=== PATIENT | female | born 1975 | race Asian ===

== ENCOUNTER 2016-11-17 11:52 | Emergency (ER) | payer MEDICAID ==
[~2016-11-17] VITALS: Ht 147.3 cm; Wt 64.5 kg
[~2016-11-17 11:52] MED LIST: ALPR-475 PO; LAMO150T PO; LAMO200T49 PO; METR500T PO; TRAZ150T68 PO; TRAZ50TA18 PO
[2016-11-17] MEDS ORDERED: ALPR-475 PO (12:47)
[2016-11-17] MEDS ORDERED: IBUPROFEN 200 MG TABLET ONE (12:59)
[2016-11-17] MEDS ORDERED: IBUPROFEN 200 MG TABLET PO ONE (13:00)
[2016-11-17 15:56] VITALS: BP 130/78
== END 2016-11-17 16:03 | disposition home or self-care (01) ==
LOC: ED 13:02
DX: S16.1XXA Strain of muscle, fascia and tendon at neck level, initial encounter (principal); M25.512 Pain in left shoulder; S80.12XA Contusion of left lower leg, initial encounter; Y04.8XXA Assault by other bodily force, initial encounter; Y93.89 Activity, other specified; Y99.8 Other external cause status; Y92.098 Other place in other non-institutional residence as the place of occurrence of the external cause
CPT/HCPCS: 72125

== ENCOUNTER 2017-04-01 04:52 | Emergency (ER) | payer SELFPAY ==
[~2017-04-01] VITALS: Ht 147.3 cm; Wt 61.7 kg
[2017-04-01 04:54] VITALS: BP 123/82
[2017-04-01] MEDS ORDERED: IBUPROFEN 200 MG TABLET ONE (05:25)
[2017-04-01] MEDS ORDERED: IBUPROFEN 200 MG TABLET PO ONE (05:30)
[2017-04-01] MEDS ORDERED: LIDOCAINE 1%, 20ML ONE (05:54)
[2017-04-01] MEDS ORDERED: LIDOCAINE 1%, 20ML SQ ONE (06:00)
== END 2017-04-01 07:16 | disposition home or self-care (01) ==
LOC: ED 05:17
DX: S63.297A Dislocation of distal interphalangeal joint of left little finger, initial encounter (principal); S70.312A Abrasion, left thigh, initial encounter; F17.210 Nicotine dependence, cigarettes, uncomplicated; W13.9XXA Fall from, out of or through building, not otherwise specified, initial encounter; Y93.89 Activity, other specified; Y92.89 Other specified places as the place of occurrence of the external cause; Y99.8 Other external cause status
CPT/HCPCS: 26670

== ENCOUNTER 2017-09-02 06:09 | Emergency (ER) | payer OTHER ==
[~2017-09-02] VITALS: Ht 149.9 cm; Wt 65.0 kg
[~2017-09-02 06:09] MED LIST changes: -LAMO150T PO; +LAMO150T2 PO; +TRAZ150T62 PO; -TRAZ150T68 PO
[2017-09-02] MEDS ORDERED: EPINEPHRINE 1 MG/ML, 1ML SQ ONE (08:00)
[2017-09-02] MEDS ORDERED: EPINEPHRINE 1 MG/ML, 1ML ONE (08:15)
[2017-09-02 08:19] LABS: BASOPHILS # (AUTO) 0.14 x10^3/uL (0-0.1); BASOPHILS % (AUTO) 3 % (0-1); EOSINOPHILS # (AUTO) 0.28 x10^3/uL (0-0.4); EOSINOPHILS % (AUTO) 5 % (1-7); LYMPHOCYTES # (AUTO) 2.31 x10^3/uL (1-3.4); LYMPHOCYTES % (AUTO) 42 % (22-44); MD NO; MEAN CORPUSCULAR HEMOGLOBIN 31.3 pg (27.0-34.8); MEAN CORPUSCULAR HGB CONC 34.3 g/dL (32.4-35.8); MEAN CORPUSCULAR VOLUME 91.1 fL (80-100); MEAN PLATELET VOLUME 8.7 fL (7.4-10.4); MONOCYTES # (AUTO) 0.76 x10^3/uL (0.2-0.8); MONOCYTES % (AUTO) 14 % (2-9); NEUTROPHILS # (AUTO) 2.06 x10^3/uL (1.8-6.8); NEUTROPHILS % (AUTO) 37 % (42-75); PLATELET COUNT 221 x10^3/uL (130-400); RED BLOOD COUNT 4.52 x10^6/uL (3.82-5.3); RED CELL DISTRIBUTION WIDTH 13.9 % (9.6-15.2)
[2017-09-02 08:31] LABS: ALANINE AMINOTRANSFERASE 34 U/L (12-78); ALBUMIN 3.7 g/dL (3.4-5.0); ANION GAP 6 mmol/L (5-15); CALCIUM 8.8 mg/dL (8.5-10.1); CHLORIDE 109 mmol/L (98-107); CREATININE 0.63 mg/dL (0.55-1.02)
[2017-09-02 08:34] LABS: ALKALINE PHOSPHATASE 64 U/L (45-117); BILIRUBIN,TOTAL 0.6 mg/dL (0.2-1.0); TOTAL PROTEIN 7.2 g/dL (6.4-8.2)
[2017-09-02 08:36] LABS: TROPONIN I < 0.015 ng/mL (0.000-0.045)
[2017-09-02 09:31] VITALS: BP 116/67
== END 2017-09-02 09:34 | disposition home or self-care (01) ==
LOC: ED 08:33
DX: J30.81 Allergic rhinitis due to animal (cat) (dog) hair and dander (principal); J45.909 Unspecified asthma, uncomplicated; R07.89 Other chest pain
CPT/HCPCS: 36415; 70360; 71046; 80053; 84484; 85025; 93005; 96372; 99285; J0171; J7512

== ENCOUNTER 2017-10-01 08:16 | Emergency (ER) | payer SELFPAY ==
[~2017-10-01] VITALS: Ht 149.9 cm; Wt 63.2 kg
[2017-10-01 10:03] VITALS: BP 129/68
== END 2017-10-01 10:24 | disposition home or self-care (01) ==
LOC: ED 09:27
DX: M54.2 Cervicalgia (principal); G40.909 Epilepsy, unspecified, not intractable, without status epilepticus; F17.210 Nicotine dependence, cigarettes, uncomplicated
CPT/HCPCS: 99282

== ENCOUNTER 2018-03-09 16:56 | Emergency (ER) | payer MEDICAID ==
[~2018-03-09] VITALS: Ht 149.9 cm; Wt 63.5 kg
[2018-03-09 16:58] VITALS: BP 119/79
== END 2018-03-09 18:04 | disposition home or self-care (01) ==
LOC: ED 17:55
DX: L03.113 Cellulitis of right upper limb (principal); Z90.710 Acquired absence of both cervix and uterus; Z90.721 Acquired absence of ovaries, unilateral
CPT/HCPCS: 99283

== ENCOUNTER 2018-08-01 12:15 | Emergency (ER) | payer MEDICAID ==
[~2018-08-01] VITALS: Ht 147.3 cm; Wt 63.0 kg
[~2018-08-01 12:15] MED LIST changes: -TRAZ50TA18 PO; +TRAZ50TA66 PO
[2018-08-01 12:23] VITALS: BP 112/66
[2018-08-01] MEDS ORDERED: KETOROLAC 30 MG/1 ML ONE (12:43)
[2018-08-01] MEDS ORDERED: KETOROLAC 30 MG/1 ML IM ONE (13:00)
== END 2018-08-01 13:15 | disposition home or self-care (01) ==
LOC: ED 13:04
DX: K08.89 Other specified disorders of teeth and supporting structures (principal); G40.909 Epilepsy, unspecified, not intractable, without status epilepticus; J45.909 Unspecified asthma, uncomplicated
CPT/HCPCS: 96372; 99283; J1885

== ENCOUNTER 2018-08-25 02:51 | Emergency (ER) | payer BC, MEDICAID ==
[~2018-08-25] VITALS: Ht 149.9 cm; Wt 68.0 kg
[2018-08-25 02:55] VITALS: BP 112/79
[2018-08-25] MEDS ORDERED: PROPARACAINE OPHTH 0.5%, 15ML ONE (03:08)
[2018-08-25] MEDS ORDERED: HYDROcodone/APAP 5/325 TABLET ONE (03:15)
[2018-08-25] MEDS ORDERED: ACETAMINOPHEN 500 MG TABLET PO ONE (03:30)
[2018-08-25] MEDS ORDERED: FLUORESCEIN OPHTHALMIC 1 MG STRIP EACHEYE ONE (03:30)
[2018-08-25] MEDS ORDERED: HYDROcodone/APAP 5/325 TABLET PO ONE (03:30)
[2018-08-25] MEDS ORDERED: PROPARACAINE OPHTH 0.5%, 15ML EACHEYE ONE (03:30)
[2018-08-25 03:54] LABS: MEAN CORPUSCULAR HEMOGLOBIN 31.4 pg (27.0-34.8); MEAN CORPUSCULAR HGB CONC 34.4 g/dL (32.4-35.8); MEAN CORPUSCULAR VOLUME 91.3 fL (80-100); MEAN PLATELET VOLUME 9.1 fL (7.4-10.4); PLATELET COUNT 249 x10^3/uL (130-400); RED BLOOD COUNT 4.93 x10^6/uL (3.82-5.3); RED CELL DISTRIBUTION WIDTH 13.9 % (9.6-15.2)
[2018-08-25 04:04] LABS: ALBUMIN 4.3 g/dL (3.4-5.0); ANION GAP 6 mmol/L (5-15); C-REACTIVE PROTEIN, QUANT 0.44 mg/dL (0.02-0.49); CALCIUM 8.6 mg/dL (8.5-10.1); CHLORIDE 111 mmol/L (98-107); CREATININE 0.67 mg/dL (0.55-1.02)
[2018-08-25 04:06] LABS: MD YES
[2018-08-25 04:09] LABS: <PLATELET ESTIMATE> ADEQUATE; <PLT MORPHOLOGY> NORMAL PLT MORPH; <RBC MORPHOLOGY> NORMAL; BASOS#(MANUAL) 0.07 x10^3/uL (0-0.1); BASOS% (MANUAL) 1 % (0-1); EOS#(MANUAL) 0.13 x10^3/uL (0.0-0.4); EOS% (MANUAL) 2 % (1-7); LYMPH#(MANUAL) 4.09 x10^3/uL (1-3.4); LYMPHS% (MANUAL) 62 % (22-44); MONOS#(MANUAL) 0.33 x10^3/uL (0.3-2.7); MONOS% (MANUAL) 5 % (2-9); REACTIVE LYMPHS % (MANUAL) 6 % (0-0); SEG#(MANUAL) 1.58 x10^3/uL (1.8-6.8); SEGS% (MANUAL) 24 % (42-75)
[2018-08-25] MEDS ORDERED: ACETAMINOPHEN 500 MG TABLET ONE (04:37)
[2018-08-25] MEDS ORDERED: OMNIPAQUE 350 MG/ML, 75ML BOTTLE ONE (04:45)
== END 2018-08-25 05:52 | disposition home or self-care (01) ==
LOC: ED 03:57
DX: H10.32 Unspecified acute conjunctivitis, left eye (principal); L03.213 Periorbital cellulitis; J45.909 Unspecified asthma, uncomplicated; G40.909 Epilepsy, unspecified, not intractable, without status epilepticus; F31.9 Bipolar disorder, unspecified; F17.200 Nicotine dependence, unspecified, uncomplicated; Z90.710 Acquired absence of both cervix and uterus
CPT/HCPCS: 36415; 70481; 80048; 82040; 85025; 85651; 86140; 99284; Q9967

== ENCOUNTER 2018-10-13 03:03 | Emergency (ER) | payer MEDICAID ==
[~2018-10-13] VITALS: Ht 149.9 cm; Wt 63.0 kg
[2018-10-13 03:05] VITALS: BP 113/82
--- NOTE | 2018-10-13 03:30 | NUR ---
[place]. REPORT RECEIVED FROM EMS. PT HAS SI TODAY. PT IS OFF MEDS FOR 6 MONTHS. PT DENIES ANY PAIN AND HI.belongings removed and put in one bag in locker, pt placed in gown and garage doors down
[2018-10-13 04:04] LABS: BASOPHILS # (AUTO) 0.06 x10^3/uL (0-0.1); BASOPHILS % (AUTO) 1 % (0-1); EOSINOPHILS # (AUTO) 0.13 x10^3/uL (0-0.4); EOSINOPHILS % (AUTO) 2 % (1-7); LYMPHOCYTES % (AUTO) 48 % (22-44); MD NO; MEAN CORPUSCULAR HEMOGLOBIN 31.3 pg (27.0-34.8); MEAN CORPUSCULAR HGB CONC 34.4 g/dL (32.4-35.8); MEAN PLATELET VOLUME 8.9 fL (7.4-10.4); MONOCYTES # (AUTO) 0.54 x10^3/uL (0.2-0.8); MONOCYTES % (AUTO) 7 % (2-9); NEUTROPHILS # (AUTO) 3.21 x10^3/uL (1.8-6.8); NEUTROPHILS % (AUTO) 43 % (42-75); PLATELET COUNT 248 x10^3/uL (130-400); RED BLOOD COUNT 5.06 x10^6/uL (3.82-5.3); RED CELL DISTRIBUTION WIDTH 13.4 % (9.6-15.2)
[2018-10-13 04:08] LABS: ALBUMIN 4.2 g/dL (3.4-5.0); ANION GAP 4 mmol/L (5-15); CALCIUM 8.8 mg/dL (8.5-10.1); CHLORIDE 110 mmol/L (98-107); SALICYLATE LEVEL < 1.7 mg/dL (2.8-20.0)
[2018-10-13 04:11] LABS: ACETAMINOPHEN < 2 mcg/mL (10-30); ALANINE AMINOTRANSFERASE 32 U/L (12-78); ALKALINE PHOSPHATASE 72 U/L (45-117); BILIRUBIN,TOTAL 0.3 mg/dL (0.2-1.0); CREATININE 0.76 mg/dL (0.55-1.02); TOTAL PROTEIN 8.4 g/dL (6.4-8.2); TROPONIN I < 0.015 ng/mL (0.000-0.045)
[2018-10-13 04:19] LABS: AMPHETAMINE SCREEN, URINE Negative (Negative); BARBITURATE SCREEN, URINE Negative (Negative); BENZODIAZEPINE SCREEN, URINE Negative (Negative); CANNABINOID SCREEN, URINE Negative (Negative); COCAINE SCREEN, URINE Negative (Negative); METHADONE SCREEN, URINE Negative (Negative); OPIATE SCREEN, URINE Negative (Negative)
--- NOTE | 2018-10-13 04:23 | NUR ---
PT RESTING IN [facility]. ROOM REMAINS SECURE. PT DENIES ANY NEEDS AND CONCERNS AT THIS TIME.
[2018-10-13] MEDS ORDERED: METO25TA35 PO (05:27)
--- NOTE | 2018-10-13 05:48 | NUR ---
BREATHALYZER 0.216 AT THIS TIME. EDMD NOTIFIED.
--- NOTE | 2018-10-13 06:27 | NUR ---
SI DIETRY TRAY ORDERED. WARM BLANKETS PROVIDED.
--- NOTE | 2018-10-13 06:58 | NUR ---
REPORT GIVEN TO JONATAN BAUMANN.
--- NOTE | 2018-10-13 07:53 | NUR ---
PROVIDED WITH BREAKFAST, DENIES FURTHER NEEDS. SITTER MONITORING FROM [facility]
--- NOTE | 2018-10-13 09:33 | NUR ---
PT DENIES SI, DR MANRIQUEZ ASSESS PT AND OK TO DC PER MD
--- NOTE | 2018-10-13 09:35 | NUR ---
PT RECEIVED ALL BELONGINGS, DENIES FURTHER NEEDS. NO ACUTE S/S OF DISTRESS. STEADY GAIT
== END 2018-10-13 09:47 | disposition home or self-care (01) ==
LOC: ED 03:51
DX: F32.1 Major depressive disorder, single episode, moderate (principal); F10.120 Alcohol abuse with intoxication, uncomplicated; F17.200 Nicotine dependence, unspecified, uncomplicated; J45.909 Unspecified asthma, uncomplicated; G40.909 Epilepsy, unspecified, not intractable, without status epilepticus
CPT/HCPCS: 36415; 80053; 80307; 80329; 83690; 84484; 84703; 85025; 93005; 99284; G0480

== ENCOUNTER 2019-10-09 20:23 | Emergency (ER) | payer MEDICAID ==
[~2019-10-09] VITALS: Ht 149.9 cm; Wt 65.2 kg
[~2019-10-09 20:23] MED LIST changes: -ALPR-475 PO; +ALPR0.5T7 PO; -LAMO150T2 PO; +LAMO150T4 PO; +METO25TA35 PO
[2019-10-09] MEDS ORDERED: LORazepam 1MG TABLET ONE (21:29)
[2019-10-09] MEDS ORDERED: LORazepam 1MG TABLET PO ONE (21:30)
[2019-10-09] MEDS ORDERED: LAMOTRIGINE 100 MG TABLET PO ONE (21:30)
[2019-10-09 21:37] LABS: BASOPHILS # (AUTO) 0.12 x10^3/uL (0-0.1); BASOPHILS % (AUTO) 2 % (0-1); EOSINOPHILS # (AUTO) 0.12 x10^3/uL (0-0.4); EOSINOPHILS % (AUTO) 2 % (1-7); LYMPHOCYTES # (AUTO) 3.67 x10^3/uL (1-3.4); LYMPHOCYTES % (AUTO) 47 % (22-44); MD NO; MEAN CORPUSCULAR HEMOGLOBIN 30.9 pg (27.0-34.8); MEAN CORPUSCULAR HGB CONC 33.5 g/dL (32.4-35.8); MEAN CORPUSCULAR VOLUME 92.3 fL (80-100); MEAN PLATELET VOLUME 8.9 fL (7.4-10.4); MONOCYTES # (AUTO) 0.62 x10^3/uL (0.2-0.8); MONOCYTES % (AUTO) 8 % (2-9); NEUTROPHILS # (AUTO) 3.32 x10^3/uL (1.8-6.8); NEUTROPHILS % (AUTO) 42 % (42-75); PLATELET COUNT 245 x10^3/uL (130-400); RED BLOOD COUNT 4.72 x10^6/uL (3.82-5.3); RED CELL DISTRIBUTION WIDTH 13.3 % (9.6-15.2)
[2019-10-09 21:46] LABS: ALBUMIN 4.1 g/dL (3.4-5.0); ANION GAP 2 mmol/L (5-15); CALCIUM 8.8 mg/dL (8.5-10.1); CHLORIDE 113 mmol/L (98-107); CREATININE 0.69 mg/dL (0.55-1.02)
[2019-10-09] MEDS ORDERED: LORazepam 0.5MG TABLET ONE (22:35)
[2019-10-09 22:48] VITALS: BP 122/64
[2019-10-09] MEDS ORDERED: LORazepam 0.5MG TABLET PO ONE (23:00)
== END 2019-10-09 22:50 | disposition home or self-care (01) ==
LOC: ED 22:44
DX: G40.909 Epilepsy, unspecified, not intractable, without status epilepticus (principal); F17.200 Nicotine dependence, unspecified, uncomplicated; J45.909 Unspecified asthma, uncomplicated; Z90.710 Acquired absence of both cervix and uterus
CPT/HCPCS: 36415; 80048; 82040; 84703; 85025; 93005; 99284

== ENCOUNTER 2020-01-04 12:30 | Emergency (ER) | payer OTHER ==
[~2020-01-04] VITALS: Ht 147.3 cm; Wt 70.0 kg
[2020-01-04 12:33] VITALS: BP 162/84
--- NOTE | 2020-01-04 12:53 | NUR ---
Assumed care of patient. C/O left foot pain s/p falling down 9 stairs. Denies hitting head and denies LOC. LLE elevated and ice applied. Daughter at bedside. No other needs.
[2020-01-04] MEDS ORDERED: OXYcodone/APAP 5/325MG TABLET PO ONE ×2 (13:00→15:00)
[2020-01-04] MEDS ORDERED: OXYcodone/APAP 5/325MG TABLET ONE ×2 (13:01→14:39)
--- NOTE | 2020-01-04 13:39 | NUR ---
Provided with blanket. No needs.
--- NOTE | 2020-01-04 14:40 | NUR ---
Continues to have complaints of pain. Second percocet administered per provider order.
--- NOTE | 2020-01-04 14:54 | NUR ---
Les EMT performing sugar tounge splint.
--- NOTE | 2020-01-04 15:19 | NUR ---
Patient/Caregiver given discharge instructions and they have confirmed that they understand the instructions. Patient ambulatory with steady gait.
== END 2020-01-04 15:23 | disposition home or self-care (01) ==
LOC: ED 13:29
DX: S93.492A Sprain of other ligament of left ankle, initial encounter (principal); J45.909 Unspecified asthma, uncomplicated; Z90.710 Acquired absence of both cervix and uterus; W10.9XXA Fall (on) (from) unspecified stairs and steps, initial encounter; Y93.89 Activity, other specified; Y92.009 Unspecified place in unspecified non-institutional (private) residence as the place of occurrence of the external cause; Y99.8 Other external cause status
CPT/HCPCS: 29515; 99284

== ENCOUNTER 2020-09-11 10:37 | Emergency (ER) | payer MEDICAID, OTHER ==
[~2020-09-11] VITALS: Ht 147.3 cm; Wt 69.2 kg
[2020-09-11 11:14] VITALS: BP 107/74
--- NOTE | 2020-09-11 12:29 | NUR ---
TASK RN: PT SITTING UP IN [place] NOTED. DC EDUCATION PROVIDED, PT DEMONSTRATES UNDERSTANDING. PT AMBULATED STEADILY TO DC WITH RN
== END 2020-09-11 12:32 | disposition home or self-care (01) ==
LOC: ED 12:00
DX: J06.9 Acute upper respiratory infection, unspecified (principal); R94.31 Abnormal electrocardiogram [ECG] [EKG]; R07.9 Chest pain, unspecified; J45.909 Unspecified asthma, uncomplicated; G40.909 Epilepsy, unspecified, not intractable, without status epilepticus; Z90.710 Acquired absence of both cervix and uterus; Z90.722 Acquired absence of ovaries, bilateral; Z88.8 Allergy status to other drugs, medicaments and biological substances; Z91.013 Allergy to seafood
CPT/HCPCS: 71045; 93005; 99283